=== PATIENT | male | born 1970 | race Two or more races ===

== ENCOUNTER 2019-05-01 13:19 | Emergency (ER) | payer MEDICAID, OTHER ==
[~2019-05-01] VITALS: Ht 172.7 cm; Wt 104.8 kg
[2019-05-01 15:54] VITALS: BP 138/86
== END 2019-05-01 15:56 | disposition home or self-care (01) ==
LOC: ER 13:33
DX: S13.4XXA Sprain of ligaments of cervical spine, initial encounter (principal); S16.1XXA Strain of muscle, fascia and tendon at neck level, initial encounter; R51 Headache; V49.9XXA Car occupant (driver) (passenger) injured in unspecified traffic accident, initial encounter; Y93.89 Activity, other specified; Y92.89 Other specified places as the place of occurrence of the external cause; Y99.8 Other external cause status
CPT/HCPCS: 72040